=== PATIENT | male | born 1960 | race Caucasian/White ===

== ENCOUNTER 2020-11-28 19:34 | Outpatient (REF) | payer OTHER, SELFPAY ==
[2020-11-28 20:18] LABS: Calculated LDL 250 mg/dL (<100); Cholesterol 354 mg/dL (<200); HDL Cholesterol 42 mg/dL (40-60); TSH (W/Ref FT4) 1.35 uIU/mL (0.36-3.74); Triglyceride 312 mg/dL (<150)
== END 2020-11-28 19:54 ==
LOC: NCHCN 19:34
PROVIDERS: PCP Family Medicine; Visit Provider Family Medicine
DX: E03.9 Hypothyroidism, unspecified (principal); E78.5 Hyperlipidemia, unspecified
CPT/HCPCS: 80061; 84443

== ENCOUNTER 2021-12-15 02:11 | Outpatient (CLI) | payer BC, SELFPAY ==
[2021-12-15 14:38] LABS: TSH (W/Ref FT4) 0.57 uIU/mL (0.36-3.74)
== END 2021-12-15 02:12 | disposition home or self-care (01) ==
LOC: LBO 02:12
PROVIDERS: PCP Family Medicine; Visit Provider Family Medicine
DX: E03.9 Hypothyroidism, unspecified (principal)
CPT/HCPCS: 36415; 84443

== ENCOUNTER 2023-05-26 02:32 | Outpatient (CLI) | payer BC, SELFPAY ==
[2023-05-26 12:50] LABS: BUN 15 mg/dL (7-18); CREATININE 1.2 mg/dL (0.70-1.30); Calcium 9.2 mg/dL (8.5-10.1); Calculated LDL 216 mg/dL (<100); Chloride 105 mmol/L (98-107); Cholesterol 294 mg/dL (<200); Estimated GFR 68.38 (mL/min/1.73m2); Glucose 106 mg/dL (74-106); HDL Cholesterol 48 mg/dL (40-60); Potassium 4.1 mmol/L (3.5-5.1); Sodium 141 mmol/L (136-145); TSH (W/Ref FT4) 56.49 uIU/mL (0.36-3.74); Triglyceride 154 mg/dL (<150)
[2023-05-26 12:51] LABS: Hemoglobin A1C 5.9 % (<5.7)
[2023-05-26 13:24] LABS: FREE T4 0.82 ng/dL (0.76-1.46)
[2023-05-27 13:02] LABS: Lyme Ab w Rflx to Lyme Confirm Negative (Negative)
[2023-05-29 21:06] LABS: Anaplasma phagocytophilum Negative (Negative); B. miyamotoi PCR Negative (Negative); Babesia divergens/MO-1 Negative (Negative); Babesia duncani Negative (Negative); Babesia microti Negative (Negative); Ehrlichia chaffeensis Negative (Negative); Ehrlichia ewingii/canis Negative (Negative); Ehrlichia muris eauclairensis Negative (Negative)
== END 2023-05-26 02:33 | disposition home or self-care (01) ==
LOC: LOS 02:32
PROVIDERS: PCP Nurse Practitioner Family; Visit Provider Nurse Practitioner Family
DX: E03.9 Hypothyroidism, unspecified (principal); T14.8XXA Other injury of unspecified body region, initial encounter; W57.XXXA Bitten or stung by nonvenomous insect and other nonvenomous arthropods, initial encounter
CPT/HCPCS: 36415; 80048; 80061; 87798; 83036; 84439; 84443; 86618

== ENCOUNTER 2024-02-10 15:00 | Outpatient (CLI) | payer BC, SELFPAY ==
[2024-02-10 12:57] LABS: TSH (W/Ref FT4) 85.58 uIU/mL (0.36-3.74)
[2024-02-10 13:24] LABS: FREE T4 0.73 ng/dL (0.76-1.46)
== END 2024-02-10 15:01 | disposition home or self-care (01) ==
LOC: LOS 15:00
PROVIDERS: PCP Nurse Practitioner Family; Visit Provider Nurse Practitioner Family
DX: E03.9 Hypothyroidism, unspecified (principal)
CPT/HCPCS: 36415; 84439; 84443

== ENCOUNTER 2024-04-06 00:43 | Outpatient (CLI) | payer BC, SELFPAY ==
[2024-04-06 10:58] LABS: TSH (W/Ref FT4) 8.38 uIU/mL (0.36-3.74)
[2024-04-06 11:14] LABS: FREE T4 0.97 ng/dL (0.76-1.46)
[2024-04-06 18:31] LABS: Thyroglobulin Antibody >500 U/mL (<=60); Thyroperoxidase Antibody 876 U/mL (<=60)
== END 2024-04-06 00:44 | disposition home or self-care (01) ==
LOC: LOS 00:45
PROVIDERS: PCP Nurse Practitioner Family; Visit Provider Nurse Practitioner Family
DX: E03.9 Hypothyroidism, unspecified (principal)
CPT/HCPCS: 36415; 80053; 80061; 86376; 86803; 83036; 84439; 84443; 85025